=== PATIENT | female | born 1945 | race Caucasian/White ===

== ENCOUNTER → 2022-06-29 15:06 | Outpatient (CLI) | payer MEDICARE, MEDICAID, SELFPAY ==
--- NOTE | 2022-06-29 15:23 | DI.RAD.S_ITS ---
PROCEDURE: XR CHEST 2V INDICATIONS: Other correction (current) drug therapy TECHNIQUE: 2 views of the chest were acquired. COMPARISON: [facility], CR, XR CHEST 1 VIEW, 06/05/2021, 12:42. FINDINGS: Surgical changes and devices: None. Lungs and pleura: Lungs are clear. No pleural effusions or pneumothorax. Mediastinum: Mediastinal contours are normal. Heart size is mildly enlarged. Bones and chest wall: No suspicious bony abnormalities. Soft tissues appear unremarkable. IMPRESSION: No acute cardiopulmonary disease. Dictated by: Garfield Tam [facility] Interpreted: Mirna Durbin MD on 06/29/2022 at 15:44 Transcribed by: TRISTA on 06/29/2022 at 15:45 Approved by: Mirna Durbin M.D. on 06/29/2022 at 17:36
== END ==
PROVIDERS: Referring Provider Nurse Practitioner Acute Care; Visit Provider Nurse Practitioner Acute Care
DX: Z79.899 Other long term (current) drug therapy (principal)
CPT/HCPCS: 71046